=== PATIENT | male | born 1940 | race Caucasian/White ===

== ENCOUNTER 2019-07-29 13:36 | Emergency (ER) | payer OTHER ==
[~2019-07-29] VITALS: Ht 180.3 cm; Wt 90.7 kg
[2019-07-29] MEDS ORDERED: SIMVASTATIN PO (13:51)
[2019-07-29] MEDS ORDERED: PRILOSEC10 MG PO (13:52)
== END 2019-07-29 17:53 | disposition home or self-care (01) ==
LOC: ER 13:36
DX: S02.2XXA Fracture of nasal bones, initial encounter for closed fracture (principal); S05.11XA Contusion of eyeball and orbital tissues, right eye, initial encounter; Y04.2XXA Assault by strike against or bumped into by another person, initial encounter; Y93.89 Activity, other specified; Y92.488 Other paved roadways as the place of occurrence of the external cause; Y99.8 Other external cause status